=== PATIENT | male | born 2000 | race Caucasian/White ===

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

== ENCOUNTER 2025-04-26 08:28 | Emergency (ER) | payer BC, OTHER | END 2025-04-26 09:47 | disposition home or self-care (01) | LOC: LL.ED 08:28 | DX: S92.355A Nondisplaced fracture of fifth metatarsal bone, left foot, initial encounter for closed fracture (principal); Z79.899 Other long term (current) drug therapy; X50.1XXA Overexertion from prolonged static or awkward postures, initial encounter | CPT/HCPCS: 29515; 73630-LT; 99283; 99283-25; A9270-GY ==